=== PATIENT | male | born 1965 | race American Indian/Alaskan Native ===

== ENCOUNTER 2017-03-21 09:35 | Emergency (ER) | payer OTHER ==
[~2017-03-21 09:35] MED LIST: ADRENALIN ONE
--- NOTE | 2017-03-21 10:28 | Emergency Department Report ---
HPI - General Chief Complaint: Cardiac Arrest/CPR Time Seen by Provider: 03/21/17 09:35 - HPI HPI: The patient is a 51-year-old male who presents in cardiac arrest via EMS. Per EMS the patient was found +30 minutes prior to arrival unresponsive, not breathing, found down the ground by family members at home. On EMS arrival greater than 20 minutes ago, the patient was found in cardiac arrest, with with asystole rhythm on monitor. Per EMS the patient received 3 rounds of epinephrine and multiple rounds of CPR in route to the emergency department. They stated the patient remained in asystole throughout the encounter. Family member share that the patient indication illicit drug use throughout the night, and was found with altered mental status 3 hours prior to being found not breathing. ED Past Medical Hx - Past Medical History Additional medical history: JOSSELINE - Surgical History Additional Surgical History: JOSSELINE - Social History Smoking Status: Unknown if ever smoked ED Review of Systems ROS: Stated complaint: CARDIAC ARREST Other details as noted in HPI Comment: Unobtainable due to pts medical conditions (unresponsive) Physical Exam - Physical Exam Physical Exam: Physical Exam: General: well-nourished, well-developed Head: Normocephalic, atraumatic Eyes: Pupils were fixed and dilated, unresponsive to light ENT: combutube present in mouth Neck: no appreciable carotid bruit or thrill Respiratory: Breath sounds equal with bag ventilations Cardio: No distal pulses, extremities cold to touch Abdomen: soft abdomen, no obvious distention, no epigastric breath sounds with assisted ventilation Musc: No pitting edema Skin: No rash Neuro: Patient unresponsive to verbal or painful stimuli, no abnormal tonicity or posturing ED Medical Decision Making - Medical Decision Making Patient arrived at 0932 The patient was seen and examined by myself. The patient is placed on a library monitor and continuous pulse ox. On initial evaluation, the patient was found to be unresponsive in cardiac arrest. Initial monitor rhythm reveals asystole. The patient is given IV epinephrine. Despite multiple rounds of CPR and ACLS medications given to the patient by EMS in the emergency department, the patient remained without pulse and in cardiac arrest. As the patient has wide and fixed dilated pupils bilaterally, and has been in cardiac arrest for greater than 30 minutes, the patient has very poor chance of return of spontaneous circulation. The resuscitation team was queried regarding additional resuscitation efforts. No further ideas were volunteered. The resuscitation team agreed that best efforts to resuscitate the patient have been made. The resuscitation code is discontinued and the patient is pronounced . Family members are informed of the patient's passing. They are allowed to me with the patient's body subsequently. Critical care attestation.: If time is entered above; I have spent that time in minutes in the direct care of this critically ill patient, excluding procedure time. ED Disposition Clinical Impression: Cardiac arrest Disposition: DISCHARGED TO HOME OR SELFCARE Is pt being admited?: No Does the pt Need Aspirin: No Condition: Critical Referrals: PRIMARY CARE, [Primary Care Provider] - 3-5 Days Time of Disposition: 09:45
== END 2017-03-21 11:07 | disposition home or self-care (01) ==
LOC: ED 09:35
DX: I46.9 Cardiac arrest, cause unspecified (principal)
CPT/HCPCS: 92950; 99285; J0171